=== PATIENT | female | born 1970 | race Caucasian/White ===

== ENCOUNTER 2021-11-12 18:01 | Emergency (ER) | payer BC ==
[~2021-11-12] VITALS: Ht 170.2 cm; Wt 79.4 kg
[2021-11-12 18:18] VITALS: BP 154/77
[2021-11-12 18:19] LABS: ABSOLUTE NEUTROPHILS 4.5 thou/uL (1.4-8.2); BASOPHILS 0.6 % (0.0-2.0); EOSINOPHILS 0.8 % (0.0-3.0); HEMATOCRIT 35.6 % (37.0-47.0); HEMOGLOBIN 11.7 gm/dL (12.0-15.0); LYMPHOCYTES 41.1 % (24.0-44.0); MCH 24.3 pg (26.0-34.0); MCHC 32.8 g/dL (28.0-37.0); MCV 74.2 fL (80.0-100.0); MONOCYTES 6.3 % (1.0-8.0); PLATELET COUNT 327 thou/uL (150-400); POLYS 51.2 % (36.0-66.0); RDW 19.2 % (10.5-14.5); WBC 8.8 thou/uL (4.0-11.0)
[2021-11-12 18:27] LABS: CALCIUM 9.2 mg/dL (8.5-10.1); CREATININE 1.1 mg/dL (0.6-1.0); POTASSIUM 3.7 mmol/L (3.5-5.1)
[2021-11-12 18:36] LABS: ALBUMIN 3.2 g/dL (3.4-5.0); TOTAL BILIRUBIN 0.3 mg/dL (0.2-1.0); TOTAL PROTEIN 6.9 g/dL (6.4-8.2)
[2021-11-12 18:57] LABS: ANISOCYTOSIS 1+; MICROCYTES 1+
--- NOTE | 2021-11-13 07:46 | EKG ---
[address] [place] [place] [address] ELECTROCARDIOGRAM REPORT Name: OSMAN ELDRIDGE Room #: [place] Daniel#: [id number] Admission: 11/12/21 Attend Phys: Discharge: 11/12/21 Date of : 70 Report #: [id number] [facility] ED Test Date: 2021-11-12 Test Time: 18:07:48 Pat Name: OSMAN ELDRIDGE Department: Room: Gender: F Avian Keeper: mat : 1970 Requested By: Jaquan Mcbride Order Number: [id number] MD: Jed Matta Measurements Intervals [place] Rate: 89 P: 15 NJ: 156 QRS: 37 QRSD: 79 T: 122 QT: 466 QTc: 568 Interpretive Statements Sinus rhythm Anteroseptal infarct, old Nonspecific ST and T wave abnormality Prolonged QT interval No previous ECG available for comparison Electronically Signed On 11-13-2021 7:46:22 [employer] by Jed Matta [email or web address] <ELECTRONICALLY SIGNED> By: Jed Matta MD, [facility] 11/13/21 0746 1807 1807 Jed Matta MD, FACC /EPI
== END 2021-11-12 20:30 | disposition home or self-care (01) ==
LOC: ER 18:01
PROVIDERS: Emergency Medicine
DX: I77.819 Aortic ectasia, unspecified site (principal); Z20.822 Contact with and (suspected) exposure to COVID-19; I77.4 Celiac artery compression syndrome; J45.909 Unspecified asthma, uncomplicated